=== PATIENT | male | born 1960 | race Caucasian/White ===

== ENCOUNTER 2021-03-05 14:33 | Emergency (ER) | payer OTHER ==
[~2021-03-05] VITALS: Ht 160 cm; Wt 56.2 kg
[2021-03-05] MEDS ORDERED: KETO10TA2 PO (17:09)
== END 2021-03-05 18:45 | disposition home or self-care (01) ==
LOC: ER 14:33
DX: S60.211A Contusion of right wrist, initial encounter (principal); W18.39XA Other fall on same level, initial encounter; Y93.89 Activity, other specified; Y92.89 Other specified places as the place of occurrence of the external cause; Y99.8 Other external cause status